=== PATIENT | male | born 1960 | race Caucasian/White ===

== ENCOUNTER → 2018-10-26 | Outpatient (CLI) | payer OTHER | END | disposition home or self-care (01) | LOC: LAB SHORT 13:14 → LAB 13:14 | DX: E11.65 Type 2 diabetes mellitus with hyperglycemia (principal); E78.5 Hyperlipidemia, unspecified; I10 Essential (primary) hypertension | CPT/HCPCS: 82043 ==

== ENCOUNTER → 2019-05-17 | Outpatient (CLI) | payer OTHER ==
[2019-05-17 16:18] LABS: Alanine Aminotransfer (ALT/SGP 79 U/L (12-78); Albumin, Blood 4.4 g/dL (3.4-5.0); Albumin/Globulin Ratio 1.3 (0.8-1.8); Alk Phos 62 U/L (50-136); Anion Gap 7 mmol/L (6-16); Aspartate Aminotrans (AST/SGOT 65 U/L (12-37); Bilirubin, Total 0.7 mg/dL (0.1-1.0); Blood Urea Nitrogen 27 mg/dL (8-24); Bun/Creatinine Ratio 27.5 (12.0-20.0); CHOL/HDL RATIO 3.1; CO2, Blood 31 mmol/L (21-32); Calcium, Blood 9.7 mg/dL (8.5-10.1); Chloride, Blood 101 mmol/L (98-108); Cholesterol 140 mg/dL (50-200); Creatinine, Blood 0.98 mg/dL (0.60-1.20); Globulin, Blood 3.3 g/dL (2.2-4.0); Glomerular Filtration Rate >60 (60-); Glucose, Blood 155 mg/dL (70-99); HDL Cholesterol 45 mg/dL (>39); LDL/HDL RATIO 1.8; Low Density Lipoprotein Chol 79 mg/dL (0-110); Potassium, Blood 4.4 mmol/L (3.5-5.5); Sodium, Blood 139 mmol/L (136-145); Total Protein, Blood 7.7 g/dL (6.4-8.2); Triglycerides 81 mg/dL (30-160); Very Low Density Lipoprot Chol 16 mg/dL (6-32)
== END ==
LOC: LAB SHORT 13:00 → LAB 13:00
PROVIDERS: Hospitalist
DX: E11.65 Type 2 diabetes mellitus with hyperglycemia (principal); I10 Essential (primary) hypertension; E78.5 Hyperlipidemia, unspecified
CPT/HCPCS: 80053; 80061; 83036

== ENCOUNTER → 2024-06-13 | Outpatient (CLI) | payer OTHER ==
[2024-06-13 15:01] LABS: Anion Gap 12 mmol/L (3-11); Blood Urea Nitrogen 28 mg/dL (8-24); Bun/Creatinine Ratio 34.9 (12.0-20.0); CHOL/HDL RATIO 3.4; CO2, Blood 23 mmol/L (21-32); Chloride, Blood 109 mmol/L (98-108); Cholesterol 130 mg/dL (50-200); Glomerular Filtration Rate 98 (60-); Glucose, Blood 171 mg/dL (70-99); HDL Cholesterol 38 mg/dL (>39); LDL/HDL RATIO 1.7; Low Density Lipoprotein Chol 64 mg/dL (0-110); Potassium, Blood 4.1 mmol/L (3.5-5.5); Sodium, Blood 140 mmol/L (136-145); Triglycerides 142 mg/dL (30-160); Very Low Density Lipoprot Chol 28 mg/dL (6-32)
[2024-06-13 15:51] LABS: Creatinine, Urine Random 81.1 mg/dL (27.00-270.00)
[2024-06-13 15:54] LABS: Microalb/Creat Ratio UR, Rand 14.303 mg/g (0.000-30.000); Microalbumin, Random Urine 11.6 mg/L (0.000-20.000)
== END | disposition home or self-care (01) ==
LOC: LAB SHORT 13:12 → LAB 13:12
PROVIDERS: Hospitalist
DX: I11.0 Hypertensive heart disease with heart failure (principal); I50.9 Heart failure, unspecified; E11.69 Type 2 diabetes mellitus with other specified complication; E78.5 Hyperlipidemia, unspecified
CPT/HCPCS: 80048; 80061; 82043; 82570

== ENCOUNTER → 2024-09-30 | Outpatient (CLI) | payer OTHER | LOC: LAB 17:44 → LAB SHORT 17:44 | DX: E11.69 Type 2 diabetes mellitus with other specified complication (principal) | CPT/HCPCS: 83036 ==